=== PATIENT | female | born 1945 | race Two or more races ===

== ENCOUNTER 2023-09-10 12:23 | Inpatient (IN) | payer OTHER ==
[~2023-09-10] VITALS: Ht 165.1 cm; Wt 102.6 kg
[2023-09-10] MEDS ORDERED: methylPREDNISolone SOD SUCC 125 MG/2 ML VL IV ONE (13:00)
[2023-09-10] MEDS ORDERED: ALBUTEROL SULF 2.5 MG/0.5ML(0.5%) NEB SOLN NEB ONE (13:00)
[2023-09-10] MEDS ORDERED: IPRATROPIUM BROM 0.5 MG/2.5ML INH SOL NEB ONE (13:00)
[2023-09-10 13:25] VITALS: PULSE 127; RESP 30; O2SAT 87
[2023-09-10 13:50] LABS: Basophils # (auto) 0 10 ^3/uL (0-0.2); Basophils % (auto) 0.2 % (0.0-2.0); Eosinophils # (auto) 0 10 ^3/uL (0-0.8); Hematocrit 36.2 % (36.0-46.0); Hemoglobin 12.1 g/dL (12.2-16.2); Lymphocytes # (auto) 0.8 10 ^3/uL (0.4-5.4); Lymphocytes % (auto) 4.5 % (10.0-50.0); Mean Corpuscular Hemoglobin 30.8 pg (28.0-32.0); Mean Corpuscular Hgb Conc. 33.4 g/dL (32.0-36.0); Mean Corpuscular Volume 92.1 fL (80.0-100.0); Monocytes # (auto) 1.3 10 ^3/uL (0-1.3); Monocytes % (auto) 7.2 % (0.0-12.0); Neutrophils # (auto) 16.3 10 ^3/uL (1.6-8.6); Neutrophils % (auto) 88.1 % (37.0-80.0); Red Blood Cells 3.93 10^6/uL (4.0-5.20); Red Cell Distribution Width 13.8 % (11.8-14.3); White Blood Cell 18.5 10^3/uL (4.4-10.8)
[2023-09-10] MEDS ORDERED: cefTRIAXone 1GM/50ML D5W 50 ML IV ONE (14:00)
[2023-09-10 14:06] LABS: Lactic Acid w/Reflex 2.2 mmol/L (0.4-2.0)
[2023-09-10 14:08] LABS: Alanine Aminotransferase 11 U/L (7-40); Albumin 3.8 g/dL (3.2-4.8); Alkaline Phosphatase 85 U/L (46-116); Anion Gap 11 (5-15); Aspartate Aminotransferase 13 U/L (13-40); BUN/Creatinine Ratio 28.4 (10.0-20.0); Bilirubin, Total 1.1 mg/dL (0.2-1.0); Blood Urea Nitrogen 27 mg/dL (9-23); Calcium 9.3 mg/dL (8.5-10.1); Carbon Dioxide 26 mmol/L (20-30); Chloride 102 mmol/L (98-107); Glucose 148 mg/dL (74-106); Potassium 3.8 mmol/L (3.5-5.1); Sodium 139 mmol/L (136-145)
[2023-09-10 15:04] LABS: Magnesium 1.7 mg/dL (1.6-2.6)
[2023-09-10] MEDS ORDERED: IOHEXOL 350 MG/ML 100ML IJ ONE (15:15)
[2023-09-10] MEDS ORDERED: MORPHINE SULFATE INJ 2 MG/ml SYRG IV PRN ×2 (16:30→16:45)
[2023-09-10] MEDS ORDERED: SODIUM CHLORIDE 0.9% 1,000 ML IV ONE ×2 (16:30)
[2023-09-10] MEDS ORDERED: NITROGLYCERIN 0.4 MG SL TAB SL PRN (16:30)
[2023-09-10] MEDS ORDERED: ONDANSETRON HCL 4 MG/2 ML VIAL IV PRN (16:45)
[2023-09-10 17:06] VITALS: BP 113/68; PULSE 127; RESP 22; TEMP 99.9; O2SAT 90
[2023-09-10 17:09] LABS: Base Excess 0.1 mmol/L (-2.0-2.0)
[2023-09-10] MEDS: IPRATROPIUM BROM 0.5 MG/2.5ML INH SOL NEB PRN (18:11)
[2023-09-10] MEDS: BUDESONIDE (INHALATION) 0.5 MG/2 ML NEB NEB SCH (18:12)
[2023-09-10] MEDS: ALBUTEROL SULF 2.5 MG/0.5ML(0.5%) NEB SOLN NEB PRN (18:12)
[2023-09-10] MEDS: FAMOTIDINE (10MG/ML) 2ML VL IV SCH (19:00)
[2023-09-10 19:01] VITALS: PULSE 111; RESP 26; O2SAT 92
[2023-09-10] MEDS: PIPERACILLIN-TAZOB 3.375GM 100 ML IV SCH (19:06)
[2023-09-10] MEDS ORDERED: ACETAMINOPHEN 325 MG TAB PO PRN (19:45)
[2023-09-10] MEDS: SODIUM CHLORIDE 0.9% 1,000 ML IV SCH (21:24)
[2023-09-10 23:37] LABS: Urine Bacteria NONE SEEN /hpf (None Seen); Urine Blood Negative /uL (Negative); Urine Clarity HAZY (Clear); Urine Color Yellow (Yellow); Urine Mucus FEW (None Seen); Urine Protein, UAD 1+ (Negative); Urine Urobilinogen Normal (Negative); Urine WBC 5 /hpf (0 - 5); Urine pH 5.5 (5.0-8.0)
[2023-09-10 23:44] LABS: Urine Specific Gravity > 1.050 (1.001-1.035)
[2023-09-11] VITALS (11 sets, daily range): BP systolic 137–162; BP diastolic 89–100; PULSE 104–135; RESP 16–20; TEMP 97.4–98; O2SAT 90–98
[2023-09-11] MEDS: PIPERACILLIN-TAZOB 3.375GM 100 ML IV SCH ×3 (00:39→12:05)
[2023-09-11 06:05] LABS: Calcium 9.6 mg/dL (8.5-10.1); Chloride 102 mmol/L (98-107); Potassium 3.7 mmol/L (3.5-5.1); Sodium 137 mmol/L (136-145)
[2023-09-11] MEDS: SODIUM CHLORIDE 0.9% 1,000 ML IV SCH ×2 (06:05→19:25)
[2023-09-11 06:06] LABS: Anion Gap 10 (5-15); Carbon Dioxide 25 mmol/L (20-30)
[2023-09-11 06:08] LABS: Basophils # (auto) 0 10 ^3/uL (0-0.2); Basophils % (auto) 0.1 % (0.0-2.0); Eosinophils # (auto) 0 10 ^3/uL (0-0.8); Hematocrit 36.1 % (36.0-46.0); Lymphocytes # (auto) 0.6 10 ^3/uL (0.4-5.4); Lymphocytes % (auto) 3.5 % (10.0-50.0); Mean Corpuscular Hemoglobin 30.7 pg (28.0-32.0); Mean Corpuscular Hgb Conc. 33.2 g/dL (32.0-36.0); Mean Corpuscular Volume 92.4 fL (80.0-100.0); Monocytes # (auto) 0.9 10 ^3/uL (0-1.3); Monocytes % (auto) 5.3 % (0.0-12.0); Neutrophils # (auto) 15.5 10 ^3/uL (1.6-8.6); Neutrophils % (auto) 91.1 % (37.0-80.0); Red Blood Cells 3.91 10^6/uL (4.0-5.20)
[2023-09-11 06:11] LABS: Blood Urea Nitrogen 29 mg/dL (9-23); Glucose 184 mg/dL (74-106)
[2023-09-11 08:03] LABS: INR 1.06 (0.9-1.15); Partial Thromboplastin Time 29.5 SEC (24.5-34.5); Prothrombin Time 11.1 sec (9.3-11.8)
[2023-09-11 08:12] LABS: COVID19 ANTIGEN SOFIA FIA NEGATIVE (NEGATIVE); Rapid Influenza A Negative (Negative); Rapid Influenza B Negative (Negative)
[2023-09-11 08:21] LABS: Base Excess 0.4 mmol/L (-2.0-2.0)
[2023-09-11] MEDS: ENOXAPARIN SOD 40 MG/0.4 ML SYRINGE SC SCH ×2 (08:41→10:11)
[2023-09-11] MEDS: BUDESONIDE (INHALATION) 0.5 MG/2 ML NEB NEB SCH ×2 (12:28→21:56)
[2023-09-11] MEDS ORDERED: cefTRIAXone 1GM/50ML D5W 50 ML IV ONE (12:30)
[2023-09-11] MEDS ORDERED: VANCOMYCIN PER PHARMACY 0 MG IV SCH (12:30)
[2023-09-11] MEDS ORDERED: VANCOMYCIN 1GM/250ML 250 ML IV ONE (13:15)
[2023-09-11] MEDS: PROMETHAZINE W/CODEINE 5 ML ORAL SYRUP PO PRN (17:37)
[2023-09-11] MEDS ORDERED: HYDR25TA87 PO (17:44)
[2023-09-11] MEDS ORDERED: ALBUTEROL MEDNEB 2.5 mg/3ml NEB ONE ×2 (18:55→21:43)
[2023-09-11] MEDS: IPRATROPIUM BROM 0.5 MG/2.5ML INH SOL NEB PRN ×2 (19:23→21:56)
[2023-09-11] MEDS: ALBUTEROL SULF 2.5 MG/0.5ML(0.5%) NEB SOLN NEB PRN ×2 (19:23→21:56)
[2023-09-11] MEDS: ACETYLCYSTEINE 10 %(100MG/ML) SOL 4ML NEB SCH (21:56)
[2023-09-11] MEDS: APIXABAN 2.5 MG TAB PO SCH (22:28)
[2023-09-12] VITALS (16 sets, daily range): BP systolic 103–179; BP diastolic 65–104; PULSE 100–128; RESP 13–30; TEMP 96.5–97.9; O2SAT 87–98
[2023-09-12] MEDS: hydrALAZINE HCL 10 MG TAB PO PRN ×2 (05:05→22:39)
[2023-09-12 05:50] LABS: Basophils # (auto) 0 10 ^3/uL (0-0.2); Basophils % (auto) 0.1 % (0.0-2.0); Eosinophils # (auto) 0 10 ^3/uL (0-0.8); Hematocrit 35.3 % (36.0-46.0); Hemoglobin 11.6 g/dL (12.2-16.2); Lymphocytes # (auto) 0.9 10 ^3/uL (0.4-5.4); Mean Corpuscular Hemoglobin 30.6 pg (28.0-32.0); Mean Corpuscular Hgb Conc. 32.9 g/dL (32.0-36.0); Mean Corpuscular Volume 93.1 fL (80.0-100.0); Monocytes # (auto) 1.4 10 ^3/uL (0-1.3); Monocytes % (auto) 8.4 % (0.0-12.0); Neutrophils # (auto) 14.7 10 ^3/uL (1.6-8.6); Neutrophils % (auto) 86.5 % (37.0-80.0); Red Blood Cells 3.79 10^6/uL (4.0-5.20); Red Cell Distribution Width 13.7 % (11.8-14.3)
[2023-09-12 05:57] LABS: Anion Gap 9 (5-15); Carbon Dioxide 25 mmol/L (20-30); Chloride 103 mmol/L (98-107); Potassium 3.7 mmol/L (3.5-5.1); Sodium 137 mmol/L (136-145)
[2023-09-12 05:58] LABS: Calcium 9.4 mg/dL (8.7-10.4)
[2023-09-12] MEDS ORDERED: ALBUTEROL MEDNEB 2.5 mg/3ml NEB ONE ×2 (06:00→12:24)
[2023-09-12 06:03] LABS: BUN/Creatinine Ratio 31.6 (10.0-20.0); Blood Urea Nitrogen 24 mg/dL (9-23); Glucose 143 mg/dL (74-106)
[2023-09-12] MEDS: BUDESONIDE (INHALATION) 0.5 MG/2 ML NEB NEB SCH ×2 (07:04→22:12)
[2023-09-12] MEDS: ALBUTEROL SULF 2.5 MG/0.5ML(0.5%) NEB SOLN NEB PRN ×2 (07:04→14:51)
[2023-09-12] MEDS: ACETYLCYSTEINE 10 %(100MG/ML) SOL 4ML NEB SCH ×3 (07:05→22:12)
[2023-09-12 07:21] LABS: Base Excess -1.1 mmol/L (-2.0-2.0)
[2023-09-12] MEDS: SODIUM CHLORIDE 0.9% 1,000 ML IV SCH (08:45)
[2023-09-12] MEDS: cefTRIAXone 1GM/50ML D5W 50 ML IV SCH (09:54)
[2023-09-12] MEDS: VANCOMYCIN 1GM/250ML 250 ML IV SCH (09:54)
[2023-09-12] MEDS: FAMOTIDINE (10MG/ML) 2ML VL IV SCH (09:55)
[2023-09-12] MEDS: hydrALAZINE HCL 25 MG TAB PO SCH (09:56)
[2023-09-12] MEDS: APIXABAN 2.5 MG TAB PO SCH ×2 (09:56→20:59)
[2023-09-12] MEDS: AZITHROMYCIN 500MG/ 250ML 250 ML IV SCH (11:11)
[2023-09-12] MEDS: METOPROLOL TARTRATE 25 MG TAB PO SCH ×2 (11:44→20:58)
[2023-09-12] MEDS: PROMETHAZINE W/CODEINE 5 ML ORAL SYRUP PO PRN (14:00)
[2023-09-12 14:47] LABS: Base Excess -2.3 mmol/L (-2.0-2.0)
[2023-09-12] MEDS ORDERED: FUROSEMIDE 20 MG/2 ML VIAL IV ONE (15:45)
[2023-09-12] MEDS: THROAT LOZENGES(CEPASTAT) MT PRN ×2 (18:48→22:33)
[2023-09-12] MEDS: IPRATROPIUM BROM 0.5 MG/2.5ML INH SOL NEB PRN (22:12)
[2023-09-13] VITALS (25 sets, daily range): BP systolic 129–199; BP diastolic 80–113; PULSE 97–119; RESP 16–26; TEMP 97.5–98.3; O2SAT 89–98
[2023-09-13] MEDS: THROAT LOZENGES(CEPASTAT) MT PRN (01:47)
[2023-09-13] MEDS ORDERED: ALBUTEROL MEDNEB 2.5 mg/3ml NEB ONE ×2 (05:41→21:10)
[2023-09-13 05:47] LABS: Basophils # (auto) 0 10 ^3/uL (0-0.2); Basophils % (auto) 0.2 % (0.0-2.0); Eosinophils # (auto) 0.1 10 ^3/uL (0-0.8); Eosinophils % (auto) 0.6 % (0.0-7.0); Hematocrit 38.2 % (36.0-46.0); Hemoglobin 12.9 g/dL (12.2-16.2); Lymphocytes # (auto) 0.7 10 ^3/uL (0.4-5.4); Lymphocytes % (auto) 4.9 % (10.0-50.0); Mean Corpuscular Hemoglobin 31.1 pg (28.0-32.0); Mean Corpuscular Hgb Conc. 33.9 g/dL (32.0-36.0); Mean Corpuscular Volume 91.7 fL (80.0-100.0); Monocytes # (auto) 1.3 10 ^3/uL (0-1.3); Monocytes % (auto) 8.8 % (0.0-12.0); Neutrophils # (auto) 12.7 10 ^3/uL (1.6-8.6); Neutrophils % (auto) 85.5 % (37.0-80.0); Red Blood Cells 4.16 10^6/uL (4.0-5.20); Red Cell Distribution Width 13.5 % (11.8-14.3); White Blood Cell 14.8 10^3/uL (4.4-10.8)
[2023-09-13] MEDS: VANCOMYCIN 1GM/250ML 250 ML IV SCH (06:00)
[2023-09-13] MEDS: BUDESONIDE (INHALATION) 0.5 MG/2 ML NEB NEB SCH ×2 (06:23→21:54)
[2023-09-13] MEDS: ALBUTEROL SULF 2.5 MG/0.5ML(0.5%) NEB SOLN NEB PRN ×2 (06:23→21:54)
[2023-09-13] MEDS: ACETYLCYSTEINE 10 %(100MG/ML) SOL 4ML NEB SCH ×3 (06:24→21:54)
[2023-09-13 07:07] LABS: Chloride 100 mmol/L (98-107); Potassium 4.6 mmol/L (3.5-5.1); Sodium 135 mmol/L (136-145)
[2023-09-13 07:08] LABS: Anion Gap 5 (5-15); Calcium 9.4 mg/dL (8.7-10.4); Carbon Dioxide 30 mmol/L (20-30)
[2023-09-13 07:13] LABS: BUN/Creatinine Ratio 39.1 (10.0-20.0); Blood Urea Nitrogen 25 mg/dL (9-23); Glucose 125 mg/dL (74-106)
[2023-09-13] MEDS: cefTRIAXone 1GM/50ML D5W 50 ML IV SCH (08:49)
[2023-09-13] MEDS: FAMOTIDINE (10MG/ML) 2ML VL IV SCH (11:22)
[2023-09-13] MEDS: AZITHROMYCIN 500MG/ 250ML 250 ML IV SCH (11:23)
[2023-09-13] MEDS: hydrALAZINE HCL 25 MG TAB PO SCH (11:24)
[2023-09-13] MEDS: APIXABAN 2.5 MG TAB PO SCH ×2 (11:24→21:34)
[2023-09-13] MEDS: METOPROLOL TARTRATE 25 MG TAB PO SCH ×2 (11:25→21:35)
[2023-09-13] MEDS ORDERED: PHENYLEPHRINE HCL 1 % NASAL SPRAY 15ML PRN (13:45)
[2023-09-13 14:10] LABS: Body Fluid Polymorphonuclear 31 % (0-25); Body Fluid Red Blood Cells 545 CUMM (0-2000); Body Fluid White Blood Cells 630 CUMM (0-200)
[2023-09-13] MEDS: IPRATROPIUM BROM 0.5 MG/2.5ML INH SOL NEB PRN ×2 (14:46→21:54)
[2023-09-13] MEDS: PROMETHAZINE W/CODEINE 5 ML ORAL SYRUP PO PRN (23:14)
[2023-09-13] MEDS: hydrALAZINE HCL 10 MG TAB PO PRN (23:14)
[2023-09-14] VITALS (106 sets, daily range): BP systolic 53–197; BP diastolic 10–163; PULSE 89–156; RESP 15–46; TEMP 96.8–98.2; O2SAT 80–100
[2023-09-14] MEDS: VANCOMYCIN 1GM/250ML 250 ML IV SCH ×2 (02:12→19:56)
[2023-09-14] MEDS ORDERED: ALBUTEROL MEDNEB 2.5 mg/3ml NEB ONE ×2 (04:52→07:19)
[2023-09-14] MEDS: IPRATROPIUM BROM 0.5 MG/2.5ML INH SOL NEB PRN ×4 (05:21→17:43)
[2023-09-14] MEDS: ALBUTEROL SULF 2.5 MG/0.5ML(0.5%) NEB SOLN NEB PRN ×4 (05:21→17:44)
[2023-09-14 05:57] LABS: Basophils # (auto) 0 10 ^3/uL (0-0.2); Basophils % (auto) 0.1 % (0.0-2.0); Eosinophils # (auto) 0.1 10 ^3/uL (0-0.8); Eosinophils % (auto) 0.7 % (0.0-7.0); Hematocrit 37.8 % (36.0-46.0); Hemoglobin 12.4 g/dL (12.2-16.2); Lymphocytes # (auto) 1.2 10 ^3/uL (0.4-5.4); Lymphocytes % (auto) 9.9 % (10.0-50.0); Mean Corpuscular Hemoglobin 30.4 pg (28.0-32.0); Mean Corpuscular Hgb Conc. 32.8 g/dL (32.0-36.0); Mean Corpuscular Volume 92.8 fL (80.0-100.0); Monocytes # (auto) 1.4 10 ^3/uL (0-1.3); Monocytes % (auto) 11.6 % (0.0-12.0); Neutrophils # (auto) 9.6 10 ^3/uL (1.6-8.6); Neutrophils % (auto) 77.7 % (37.0-80.0); Red Blood Cells 4.08 10^6/uL (4.0-5.20); Red Cell Distribution Width 13.6 % (11.8-14.3); White Blood Cell 12.4 10^3/uL (4.4-10.8)
[2023-09-14] MEDS: ACETYLCYSTEINE 10 %(100MG/ML) SOL 4ML NEB SCH ×3 (05:57→17:44)
[2023-09-14] MEDS: BUDESONIDE (INHALATION) 0.5 MG/2 ML NEB NEB SCH ×2 (05:57→17:44)
[2023-09-14 06:05] LABS: Base Excess -4.8 mmol/L (-2.0-2.0)
[2023-09-14 07:21] LABS: Base Excess -2.9 mmol/L (-2.0-2.0)
[2023-09-14] MEDS ORDERED: SUCCINYLCHOLINE CHLORIDE 20 MG/ML 10ML VIAL IV ONE (08:48)
[2023-09-14] MEDS ORDERED: ETOMIDATE (2MG/ML) 20ML VIAL IV ONE (08:48)
[2023-09-14] MEDS ORDERED: PROPOFOL 100 ML IV ONE (08:48)
[2023-09-14] MEDS ORDERED: MIDAZOLAM DRIP 50 mg/50mL 50 ML IV ONE (08:56)
[2023-09-14] MEDS: MIDAZOLAM DRIP 50 mg/50mL 50 ML IV SCH ×3 (09:13→17:52)
[2023-09-14] MEDS: NOREPINEPHRINE 8 MG/250ML KIT 250 ML IV SCH (09:15)
[2023-09-14] MEDS ORDERED: NOREPINEPHRINE 8 MG/250ML KIT 250 ML IV ONE (09:17)
[2023-09-14] MEDS: fentaNYL Drip 2500mCg/250mlNS 250 ML IV SCH (09:30)
[2023-09-14] MEDS: PROPOFOL 100 ML IV SCH ×2 (09:30→21:13)
[2023-09-14] MEDS ORDERED: AMIODARONE 450mg/250ml AE 250 ML IV ONE (09:36)
[2023-09-14] MEDS ORDERED: AMIODARONE 450mg/250ml AE 250 ML IV SCH (09:45)
[2023-09-14] MEDS: APIXABAN 2.5 MG TAB PO SCH (10:00)
[2023-09-14] MEDS: hydrALAZINE HCL 25 MG TAB PO SCH (10:00)
[2023-09-14] MEDS: METOPROLOL TARTRATE 25 MG TAB PO SCH (10:00)
[2023-09-14 11:47] LABS: Base Excess 1.8 mmol/L (-2.0-2.0)
[2023-09-14] MEDS: FAMOTIDINE (10MG/ML) 2ML VL IV SCH (11:47)
[2023-09-14] MEDS: cefTRIAXone 1GM/50ML D5W 50 ML IV SCH (11:47)
[2023-09-14 12:07] LABS: Eosinophils # (auto) 0 10 ^3/uL (0-0.8); Monocytes # (auto) 1.6 10 ^3/uL (0-1.3); Monocytes % (auto) 7.3 % (0.0-12.0); Red Blood Cells 3.88 10^6/uL (4.0-5.20)
[2023-09-14 12:09] LABS: Basophils # (auto) 0.1 10 ^3/uL (0-0.2); Basophils % (auto) 0.3 % (0.0-2.0); Eosinophils % (auto) 0.1 % (0.0-7.0); Hematocrit 35.2 % (36.0-46.0); Hemoglobin 11.8 g/dL (12.2-16.2); Lymphocytes % (auto) 4.5 % (10.0-50.0); Mean Corpuscular Hemoglobin 30.4 pg (28.0-32.0); Mean Corpuscular Hgb Conc. 33.6 g/dL (32.0-36.0); Mean Corpuscular Volume 90.7 fL (80.0-100.0); Neutrophils % (auto) 87.8 % (37.0-80.0); Nucleated Red Blood Cells % 0.2 %; Red Cell Distribution Width 13.7 % (11.8-14.3); White Blood Cell 21.6 10^3/uL (4.4-10.8)
[2023-09-14 12:27] LABS: INR 1.04 (0.9-1.15); Partial Thromboplastin Time 21.7 SEC (24.5-34.5); Prothrombin Time 10.9 sec (9.3-11.8)
[2023-09-14 12:44] LABS: Alanine Aminotransferase 19 U/L (7-40); Albumin 3.6 g/dL (3.2-4.8); Alkaline Phosphatase 87 U/L (46-116); Anion Gap 7 (5-15); Aspartate Aminotransferase 19 U/L (13-40); BUN/Creatinine Ratio 24.7 (10.0-20.0); Bilirubin, Total 0.7 mg/dL (0.2-1.0); Blood Urea Nitrogen 19 mg/dL (9-23); Calcium 9.3 mg/dL (8.7-10.4); Carbon Dioxide 30 mmol/L (20-30); Chloride 99 mmol/L (98-107); Glucose 190 mg/dL (74-106); Sodium 136 mmol/L (136-145)
[2023-09-14] MEDS: AZITHROMYCIN 500MG/ 250ML 250 ML IV SCH (12:47)
[2023-09-14] MEDS: AMIODARONE 450mg/250ml AE 250 ML IV SCH ×2 (15:47→17:50)
[2023-09-14] MEDS ORDERED: LIDOCAINE 1% (LOCAL ANESTH.) PF 5ml SDV ID ONE (19:00)
[2023-09-14] MEDS: SODIUM CHLOR 0.9% PF (SALINE LOCK) 10ML VIAL/SYR IV SCH (22:04)
[2023-09-14] MEDS: APIXABAN 2.5 MG TAB NG SCH (22:04)
[2023-09-15] VITALS (107 sets, daily range): BP systolic 66–137; BP diastolic 29–85; PULSE 97–126; RESP 14–30; TEMP 97.3–99.3; O2SAT 93–100
[2023-09-15] MEDS: NOREPINEPHRINE 8 MG/250ML KIT 250 ML IV SCH ×3 (00:41→23:42)
[2023-09-15] MEDS: MIDAZOLAM DRIP 50 mg/50mL 50 ML IV SCH ×4 (01:09→23:41)
[2023-09-15] MEDS: PROPOFOL 100 ML IV SCH ×3 (01:12→21:02)
[2023-09-15] MEDS ORDERED: ALBUTEROL MEDNEB 2.5 mg/3ml NEB ONE ×2 (07:15→14:27)
[2023-09-15] MEDS: BUDESONIDE (INHALATION) 0.5 MG/2 ML NEB NEB SCH ×2 (07:19→22:16)
[2023-09-15] MEDS: ALBUTEROL SULF 2.5 MG/0.5ML(0.5%) NEB SOLN NEB PRN ×2 (07:19→14:29)
[2023-09-15] MEDS: IPRATROPIUM BROM 0.5 MG/2.5ML INH SOL NEB PRN ×3 (07:19→22:16)
[2023-09-15] MEDS: ACETYLCYSTEINE 10 %(100MG/ML) SOL 4ML NEB SCH ×3 (07:20→22:16)
[2023-09-15 07:27] LABS: Chloride 97 mmol/L (98-107); Sodium 134 mmol/L (136-145)
[2023-09-15 07:28] LABS: Anion Gap 12 (5-15); Calcium 9.2 mg/dL (8.7-10.4); Carbon Dioxide 25 mmol/L (20-30)
[2023-09-15 07:32] LABS: Basophils # (auto) 0 10 ^3/uL (0-0.2); Basophils % (auto) 0.2 % (0.0-2.0); Eosinophils # (auto) 0.3 10 ^3/uL (0-0.8)
[2023-09-15 07:33] LABS: BUN/Creatinine Ratio 24.5 (10.0-20.0); Blood Urea Nitrogen 26 mg/dL (9-23); Glucose 178 mg/dL (74-106)
[2023-09-15 07:34] LABS: Eosinophils % (auto) 1.4 % (0.0-7.0); Hematocrit 36.8 % (36.0-46.0); Hemoglobin 12.4 g/dL (12.2-16.2); Lymphocytes # (auto) 2.1 10 ^3/uL (0.4-5.4); Lymphocytes % (auto) 9.7 % (10.0-50.0); Mean Corpuscular Hemoglobin 30.6 pg (28.0-32.0); Mean Corpuscular Hgb Conc. 33.6 g/dL (32.0-36.0); Mean Corpuscular Volume 90.9 fL (80.0-100.0); Monocytes # (auto) 2.2 10 ^3/uL (0-1.3); Neutrophils # (auto) 17.3 10 ^3/uL (1.6-8.6); Neutrophils % (auto) 78.7 % (37.0-80.0); Red Blood Cells 4.05 10^6/uL (4.0-5.20); Red Cell Distribution Width 14.1 % (11.8-14.3)
[2023-09-15 08:05] LABS: Base Excess 0.5 mmol/L (-2.0-2.0)
[2023-09-15] MEDS: cefTRIAXone 1GM/50ML D5W 50 ML IV SCH (08:52)
[2023-09-15] MEDS: fentaNYL Drip 2500mCg/250mlNS 250 ML IV SCH (09:30)
[2023-09-15] MEDS: AMIODARONE 450mg/250ml AE 250 ML IV SCH ×2 (10:00→23:42)
[2023-09-15] MEDS: FAMOTIDINE (10MG/ML) 2ML VL IV SCH (10:26)
[2023-09-15] MEDS: APIXABAN 2.5 MG TAB NG SCH ×2 (10:26→21:53)
[2023-09-15] MEDS: AZITHROMYCIN 500MG/ 250ML 250 ML IV SCH (10:27)
[2023-09-15] MEDS: SODIUM CHLOR 0.9% PF (SALINE LOCK) 10ML VIAL/SYR IV SCH ×2 (10:27→22:44)
[2023-09-15] MEDS: VANCOMYCIN 1GM/250ML 250 ML IV SCH (13:53)
[2023-09-15 14:18] LABS: Protein, Body Fluid 2.8 g/dL (.)
[2023-09-15 23:17] LABS: Mean Corpuscular Hemoglobin 30.3 pg (28.0-32.0); Mean Corpuscular Hgb Conc. 33.4 g/dL (32.0-36.0); Mean Corpuscular Volume 90.5 fL (80.0-100.0); Red Blood Cells 3.97 10^6/uL (4.0-5.20); White Blood Cell 23.7 10^3/uL (4.4-10.8)
[2023-09-15 23:19] LABS: Band Neutrophils % (manual) 0; Basophils % (manual) 0 (0.0-2.0); Blast Cells 0; Metamyelocytes % 0; Myelocytes % 0; Promyelocytes % 0; Reactive Lymphocytes 0
[2023-09-15 23:39] LABS: Eosinophils % (manual) 1 (0-7); Lymphocytes % (manual) 18 (10.0-50.0); Monocytes % (manual) 13 (0-12); Platelet Estimate Increased
[2023-09-16] VITALS (108 sets, daily range): BP systolic 80–137; BP diastolic 47–94; PULSE 94–142; RESP 16–40; TEMP 98–99.3; O2SAT 73–100
[2023-09-16] MEDS: METOPROLOL TARTRATE 1MG/1ML-5ML VIAL IV PRN (03:16)
[2023-09-16 04:52] LABS: Hemoglobin 12.1 g/dL (12.2-16.2); Red Blood Cells 3.99 10^6/uL (4.0-5.20); White Blood Cell 22.8 10^3/uL (4.4-10.8)
[2023-09-16 04:54] LABS: Chloride 98 mmol/L (98-107); Hematocrit 36.2 % (36.0-46.0); Mean Corpuscular Hemoglobin 30.4 pg (28.0-32.0); Mean Corpuscular Hgb Conc. 33.4 g/dL (32.0-36.0); Mean Corpuscular Volume 90.8 fL (80.0-100.0); Sodium 132 mmol/L (136-145)
[2023-09-16 04:55] LABS: Anion Gap 6 (5-15); Carbon Dioxide 28 mmol/L (20-30)
[2023-09-16 04:56] LABS: Calcium 9.3 mg/dL (8.5-10.1)
[2023-09-16 05:00] LABS: BUN/Creatinine Ratio 19.6 (10.0-20.0); Blood Urea Nitrogen 19 mg/dL (9-23); Glucose 172 mg/dL (74-106)
[2023-09-16 05:06] LABS: INR 1.04 (0.9-1.15); Partial Thromboplastin Time 28.7 SEC (24.5-34.5); Prothrombin Time 10.9 sec (9.3-11.8)
[2023-09-16 05:25] LABS: Band Neutrophils % (manual) 0; Basophils % (manual) 0 (0.0-2.0); Blast Cells 0; Eosinophils % (manual) 0 (0-7); Metamyelocytes % 0; Promyelocytes % 0; Reactive Lymphocytes 0
[2023-09-16] MEDS ORDERED: ALBUTEROL MEDNEB 2.5 mg/3ml NEB ONE ×4 (06:14→22:27)
[2023-09-16] MEDS: MIDAZOLAM DRIP 50 mg/50mL 50 ML IV SCH ×4 (06:42→22:07)
[2023-09-16] MEDS: ACETYLCYSTEINE 10 %(100MG/ML) SOL 4ML NEB SCH ×3 (07:01→22:28)
[2023-09-16] MEDS: ALBUTEROL SULF 2.5 MG/0.5ML(0.5%) NEB SOLN NEB PRN ×3 (07:01→22:27)
[2023-09-16] MEDS: BUDESONIDE (INHALATION) 0.5 MG/2 ML NEB NEB SCH ×2 (07:02→22:28)
[2023-09-16] MEDS: IPRATROPIUM BROM 0.5 MG/2.5ML INH SOL NEB PRN ×2 (07:03→22:27)
[2023-09-16] MEDS: VANCOMYCIN 1GM/250ML 250 ML IV SCH (07:30)
[2023-09-16 07:46] LABS: Lymphocytes % (manual) 11 (10.0-50.0); Monocytes % (manual) 10 (0-12); Myelocytes % 3; Platelet Estimate Increased
[2023-09-16] MEDS: NOREPINEPHRINE 8 MG/250ML KIT 250 ML IV SCH ×2 (08:04→23:26)
[2023-09-16] MEDS: PROPOFOL 100 ML IV SCH (08:09)
[2023-09-16 09:13] LABS: Base Excess 3.5 mmol/L (-2.0-2.0)
[2023-09-16] MEDS: cefTRIAXone 1GM/50ML D5W 50 ML IV SCH (09:27)
[2023-09-16] MEDS ORDERED: GLYCOPYRROLATE 0.2 MG/ML 1ML VIAL ONE (09:27)
[2023-09-16] MEDS ORDERED: EPINEPHrine HCL 1 MG/1 ML AMP ONE (09:27)
[2023-09-16] MEDS ORDERED: LIDOCAINE 2% JELLY 11ml (GLYDO) ONE (09:27)
[2023-09-16] MEDS: FAMOTIDINE (10MG/ML) 2ML VL IV SCH (09:28)
[2023-09-16] MEDS: fentaNYL Drip 2500mCg/250mlNS 250 ML IV SCH (09:28)
[2023-09-16] MEDS: APIXABAN 2.5 MG TAB NG SCH ×2 (09:29→21:04)
[2023-09-16] MEDS: SODIUM CHLOR 0.9% PF (SALINE LOCK) 10ML VIAL/SYR IV SCH ×2 (09:29→22:07)
[2023-09-16] MEDS: AZITHROMYCIN 500MG/ 250ML 250 ML IV SCH (10:14)
[2023-09-16] MEDS: AMIODARONE 450mg/250ml AE 250 ML IV SCH (14:13)
[2023-09-17] VITALS (104 sets, daily range): BP systolic 68–143; BP diastolic 42–89; PULSE 96–128; RESP 16–45; TEMP 97.5–99.5; O2SAT 90–100
[2023-09-17] MEDS: PROPOFOL 100 ML IV SCH ×2 (00:06→16:38)
[2023-09-17] MEDS: VANCOMYCIN 1GM/250ML 250 ML IV SCH ×2 (02:16→20:35)
[2023-09-17 05:02] LABS: Hematocrit 35.6 % (36.0-46.0)
[2023-09-17 05:05] LABS: Mean Corpuscular Hemoglobin 30.7 pg (28.0-32.0); Mean Corpuscular Hgb Conc. 33.5 g/dL (32.0-36.0); Mean Corpuscular Volume 91.6 fL (80.0-100.0); Red Blood Cells 3.89 10^6/uL (4.0-5.20); Red Cell Distribution Width 14.3 % (11.8-14.3); White Blood Cell 22.7 10^3/uL (4.4-10.8)
[2023-09-17] MEDS: AMIODARONE 450mg/250ml AE 250 ML IV SCH ×2 (05:15→19:57)
[2023-09-17 05:18] LABS: Band Neutrophils % (manual) 0; Basophils % (manual) 0 (0.0-2.0); Blast Cells 0; Eosinophils % (manual) 0 (0-7); Metamyelocytes % 0; Promyelocytes % 0; Reactive Lymphocytes 0
[2023-09-17 05:32] LABS: Calcium 9.4 mg/dL (8.7-10.4); Chloride 97 mmol/L (98-107); Potassium 3.8 mmol/L (3.5-5.1); Sodium 134 mmol/L (136-145)
[2023-09-17 05:33] LABS: Anion Gap 8 (5-15); Carbon Dioxide 29 mmol/L (20-30)
[2023-09-17 05:39] LABS: BUN/Creatinine Ratio 19.3 (10.0-20.0); Blood Urea Nitrogen 17 mg/dL (9-23); Glucose 190 mg/dL (74-106)
[2023-09-17] MEDS: MIDAZOLAM DRIP 50 mg/50mL 50 ML IV SCH ×2 (05:43→13:13)
[2023-09-17] MEDS: BUDESONIDE (INHALATION) 0.5 MG/2 ML NEB NEB SCH ×2 (06:41→23:01)
[2023-09-17] MEDS: IPRATROPIUM BROM 0.5 MG/2.5ML INH SOL NEB PRN ×3 (06:41→23:00)
[2023-09-17] MEDS: ACETYLCYSTEINE 10 %(100MG/ML) SOL 4ML NEB SCH ×3 (06:41→23:00)
[2023-09-17 07:24] LABS: Base Excess 3.2 mmol/L (-2.0-2.0)
[2023-09-17 07:55] LABS: Lymphocytes % (manual) 7 (10.0-50.0); Monocytes % (manual) 6 (0-12); Myelocytes % 2; Platelet Estimate Increased
[2023-09-17] MEDS: fentaNYL Drip 2500mCg/250mlNS 250 ML IV SCH (09:03)
[2023-09-17] MEDS: METOPROLOL TARTRATE 1MG/1ML-5ML VIAL IV PRN (09:04)
[2023-09-17] MEDS: SODIUM CHLOR 0.9% PF (SALINE LOCK) 10ML VIAL/SYR IV SCH ×2 (09:24→21:12)
[2023-09-17] MEDS: FAMOTIDINE (10MG/ML) 2ML VL IV SCH (09:24)
[2023-09-17] MEDS: cefTRIAXone 1GM/50ML D5W 50 ML IV SCH (09:24)
[2023-09-17] MEDS: NOREPINEPHRINE 8 MG/250ML KIT 250 ML IV SCH ×2 (09:50→19:58)
[2023-09-17] MEDS: AZITHROMYCIN 500MG/ 250ML 250 ML IV SCH (13:09)
[2023-09-17] MEDS: APIXABAN 2.5 MG TAB NG SCH ×2 (13:09→21:12)
[2023-09-17] MEDS: Jevity 1.2 Cal/Fiber 1 Liter GT SCH (14:43)
[2023-09-17] MEDS ORDERED: ALBUTEROL MEDNEB 2.5 mg/3ml NEB ONE (22:00)
[2023-09-17] MEDS: ALBUTEROL SULF 2.5 MG/0.5ML(0.5%) NEB SOLN NEB PRN (23:00)
[2023-09-18] VITALS (107 sets, daily range): BP systolic 79–168; BP diastolic 19–101; PULSE 92–123; RESP 14–22; TEMP 98.2–99.7; O2SAT 89–100
[2023-09-18] MEDS: MIDAZOLAM DRIP 50 mg/50mL 50 ML IV SCH (00:09)
[2023-09-18 04:11] LABS: Eosinophils # (auto) 0.8 10 ^3/uL (0-0.8); Eosinophils % (auto) 4.9 % (0.0-7.0); Hemoglobin 11.6 g/dL (12.2-16.2); Monocytes # (auto) 1.7 10 ^3/uL (0-1.3); Nucleated Red Blood Cells % 0.1 %
[2023-09-18 04:13] LABS: Basophils # (auto) 0.1 10 ^3/uL (0-0.2); Basophils % (auto) 0.6 % (0.0-2.0); Hematocrit 34.8 % (36.0-46.0); Lymphocytes # (auto) 1.5 10 ^3/uL (0.4-5.4); Lymphocytes % (auto) 9.7 % (10.0-50.0); Mean Corpuscular Hemoglobin 30.6 pg (28.0-32.0); Mean Corpuscular Hgb Conc. 33.3 g/dL (32.0-36.0); Mean Corpuscular Volume 91.9 fL (80.0-100.0); Neutrophils # (auto) 11.5 10 ^3/uL (1.6-8.6); Neutrophils % (auto) 73.8 % (37.0-80.0); Red Blood Cells 3.78 10^6/uL (4.0-5.20); Red Cell Distribution Width 13.9 % (11.8-14.3); White Blood Cell 15.6 10^3/uL (4.4-10.8)
[2023-09-18 04:17] LABS: Anion Gap 6 (5-15); Carbon Dioxide 31 mmol/L (20-30); Chloride 98 mmol/L (98-107); Potassium 4.1 mmol/L (3.5-5.1); Sodium 135 mmol/L (136-145)
[2023-09-18 04:18] LABS: Calcium 9.4 mg/dL (8.5-10.1)
[2023-09-18 04:23] LABS: BUN/Creatinine Ratio 18.6 (10.0-20.0); Blood Urea Nitrogen 16 mg/dL (9-23); Glucose 141 mg/dL (74-106)
[2023-09-18] MEDS: NOREPINEPHRINE 8 MG/250ML KIT 250 ML IV SCH ×2 (05:49→19:41)
[2023-09-18] MEDS: PROPOFOL 100 ML IV SCH ×2 (06:27→13:22)
[2023-09-18] MEDS: ACETYLCYSTEINE 10 %(100MG/ML) SOL 4ML NEB SCH ×3 (06:55→21:56)
[2023-09-18] MEDS: BUDESONIDE (INHALATION) 0.5 MG/2 ML NEB NEB SCH ×2 (06:55→21:55)
[2023-09-18] MEDS: IPRATROPIUM BROM 0.5 MG/2.5ML INH SOL NEB PRN ×3 (06:55→21:55)
[2023-09-18 07:36] LABS: Base Excess 4.7 mmol/L (-2.0-2.0)
[2023-09-18] MEDS: cefTRIAXone 1GM/50ML D5W 50 ML IV SCH (09:06)
[2023-09-18] MEDS: fentaNYL Drip 2500mCg/250mlNS 250 ML IV SCH (09:30)
[2023-09-18] MEDS: APIXABAN 2.5 MG TAB NG SCH ×2 (09:44→21:57)
[2023-09-18] MEDS: AZITHROMYCIN 500MG/ 250ML 250 ML IV SCH (09:44)
[2023-09-18] MEDS: FAMOTIDINE (10MG/ML) 2ML VL IV SCH (09:44)
[2023-09-18] MEDS: SODIUM CHLOR 0.9% PF (SALINE LOCK) 10ML VIAL/SYR IV SCH ×2 (09:45→21:57)
[2023-09-18] MEDS: AMIODARONE 450mg/250ml AE 250 ML IV SCH (10:52)
[2023-09-18] MEDS: Jevity 1.2 Cal/Fiber 1 Liter GT SCH (16:00)
[2023-09-18] MEDS ORDERED: ALBUTEROL MEDNEB 2.5 mg/3ml NEB ONE (21:53)
[2023-09-18] MEDS: ALBUTEROL SULF 2.5 MG/0.5ML(0.5%) NEB SOLN NEB PRN (21:56)
[2023-09-19] VITALS (106 sets, daily range): BP systolic 83–150; BP diastolic 53–99; PULSE 92–113; RESP 13–26; TEMP 98.4–99.3; O2SAT 78–100
[2023-09-19] MEDS: AMIODARONE 450mg/250ml AE 250 ML IV SCH ×2 (01:24→12:43)
[2023-09-19] MEDS: PROPOFOL 100 ML IV SCH (01:24)
[2023-09-19 04:15] LABS: Basophils # (auto) 0.1 10 ^3/uL (0-0.2); Basophils % (auto) 0.4 % (0.0-2.0); Eosinophils # (auto) 0.6 10 ^3/uL (0-0.8); Eosinophils % (auto) 3.8 % (0.0-7.0); Hematocrit 33.8 % (36.0-46.0); Hemoglobin 11.2 g/dL (12.2-16.2); Lymphocytes # (auto) 1.3 10 ^3/uL (0.4-5.4); Lymphocytes % (auto) 7.7 % (10.0-50.0); Mean Corpuscular Hemoglobin 30.4 pg (28.0-32.0); Mean Corpuscular Hgb Conc. 33.2 g/dL (32.0-36.0); Mean Corpuscular Volume 91.7 fL (80.0-100.0); Monocytes # (auto) 1.6 10 ^3/uL (0-1.3); Monocytes % (auto) 9.7 % (0.0-12.0); Neutrophils % (auto) 78.4 % (37.0-80.0); Red Blood Cells 3.69 10^6/uL (4.0-5.20); Red Cell Distribution Width 14.4 % (11.8-14.3); White Blood Cell 16.5 10^3/uL (4.4-10.8)
[2023-09-19 04:30] LABS: Chloride 98 mmol/L (98-107); Potassium 4.6 mmol/L (3.5-5.1); Sodium 133 mmol/L (136-145)
[2023-09-19 04:31] LABS: Anion Gap 5 (5-15); Calcium 9.3 mg/dL (8.5-10.1); Carbon Dioxide 30 mmol/L (20-30)
[2023-09-19 04:36] LABS: BUN/Creatinine Ratio 20.2 (10.0-20.0); Blood Urea Nitrogen 17 mg/dL (9-23); Glucose 133 mg/dL (74-106)
[2023-09-19] MEDS: IPRATROPIUM BROM 0.5 MG/2.5ML INH SOL NEB PRN ×3 (06:42→18:37)
[2023-09-19] MEDS: ALBUTEROL SULF 2.5 MG/0.5ML(0.5%) NEB SOLN NEB PRN ×2 (06:42→18:37)
[2023-09-19] MEDS: BUDESONIDE (INHALATION) 0.5 MG/2 ML NEB NEB SCH ×2 (06:43→18:37)
[2023-09-19] MEDS: ACETYLCYSTEINE 10 %(100MG/ML) SOL 4ML NEB SCH ×3 (06:43→18:38)
[2023-09-19] MEDS: Jevity 1.2 Cal/Fiber 1 Liter GT SCH (07:20)
[2023-09-19] MEDS: MIDAZOLAM DRIP 50 mg/50mL 50 ML IV SCH (09:30)
[2023-09-19] MEDS: APIXABAN 2.5 MG TAB NG SCH ×2 (10:32→22:18)
[2023-09-19] MEDS: FAMOTIDINE (10MG/ML) 2ML VL IV SCH (10:32)
[2023-09-19] MEDS: SODIUM CHLOR 0.9% PF (SALINE LOCK) 10ML VIAL/SYR IV SCH ×2 (10:33→22:20)
[2023-09-19] MEDS ORDERED: ALBUTEROL MEDNEB 2.5 mg/3ml NEB ONE ×2 (11:02→14:57)
[2023-09-19] MEDS: FUROSEMIDE 20 MG/2 ML VIAL IV SCH ×2 (12:36→19:04)
[2023-09-19] MEDS: NOREPINEPHRINE 8 MG/250ML KIT 250 ML IV SCH (12:43)
[2023-09-19] MEDS ORDERED: IPRATROPIUM BROM 0.5 MG/2.5ML INH SOL ONE (14:57)
[2023-09-19] MEDS: MORPHINE SULFATE INJ 2 MG/ml SYRG IV PRN (22:19)
[2023-09-20] VITALS (66 sets, daily range): BP systolic 91–148; BP diastolic 44–82; PULSE 93–109; RESP 14–22; TEMP 97.3–98.8; O2SAT 92–100
[2023-09-20 04:09] LABS: Basophils # (auto) 0.1 10 ^3/uL (0-0.2); Basophils % (auto) 0.4 % (0.0-2.0); Eosinophils # (auto) 0.3 10 ^3/uL (0-0.8); Eosinophils % (auto) 1.8 % (0.0-7.0); Hematocrit 34.7 % (36.0-46.0); Hemoglobin 11.3 g/dL (12.2-16.2); Lymphocytes # (auto) 1.4 10 ^3/uL (0.4-5.4); Lymphocytes % (auto) 8.1 % (10.0-50.0); Mean Corpuscular Hemoglobin 29.8 pg (28.0-32.0); Mean Corpuscular Hgb Conc. 32.7 g/dL (32.0-36.0); Mean Corpuscular Volume 91.1 fL (80.0-100.0); Monocytes # (auto) 1.7 10 ^3/uL (0-1.3); Neutrophils # (auto) 13.2 10 ^3/uL (1.6-8.6); Neutrophils % (auto) 79.7 % (37.0-80.0); Red Blood Cells 3.81 10^6/uL (4.0-5.20); Red Cell Distribution Width 14.1 % (11.8-14.3); White Blood Cell 16.6 10^3/uL (4.4-10.8)
[2023-09-20 04:25] LABS: Calcium 9.5 mg/dL (8.7-10.4); Chloride 96 mmol/L (98-107); Potassium 4.9 mmol/L (3.5-5.1); Sodium 133 mmol/L (136-145)
[2023-09-20 04:26] LABS: Anion Gap 5 (5-15); Carbon Dioxide 32 mmol/L (20-30)
[2023-09-20 04:31] LABS: Blood Urea Nitrogen 24 mg/dL (9-23); Glucose 110 mg/dL (74-106)
[2023-09-20] MEDS: AMIODARONE 450mg/250ml AE 250 ML IV SCH (06:18)
[2023-09-20] MEDS: FUROSEMIDE 20 MG/2 ML VIAL IV SCH ×2 (06:18→17:32)
[2023-09-20] MEDS: ACETYLCYSTEINE 10 %(100MG/ML) SOL 4ML NEB SCH ×3 (06:49→18:44)
[2023-09-20] MEDS: ALBUTEROL SULF 2.5 MG/0.5ML(0.5%) NEB SOLN NEB PRN ×3 (06:49→18:43)
[2023-09-20] MEDS: IPRATROPIUM BROM 0.5 MG/2.5ML INH SOL NEB PRN ×3 (06:49→18:43)
[2023-09-20] MEDS: BUDESONIDE (INHALATION) 0.5 MG/2 ML NEB NEB SCH ×2 (06:50→18:43)
[2023-09-20] MEDS: MIDAZOLAM DRIP 50 mg/50mL 50 ML IV SCH (09:30)
[2023-09-20 09:40] LABS: Base Excess 6.2 mmol/L (-2.0-2.0)
[2023-09-20] MEDS: APIXABAN 2.5 MG TAB NG SCH ×2 (10:00→21:46)
[2023-09-20] MEDS: FAMOTIDINE (10MG/ML) 2ML VL IV SCH (10:00)
[2023-09-20] MEDS: SODIUM CHLOR 0.9% PF (SALINE LOCK) 10ML VIAL/SYR IV SCH ×2 (10:01→21:47)
[2023-09-20] MEDS: Jevity 1.2 Cal/Fiber 1 Liter GT SCH (17:32)
[2023-09-20] MEDS: AMIODARONE HCL 200 MG TAB PO SCH (21:46)
[2023-09-21] VITALS (44 sets, daily range): BP systolic 95–160; BP diastolic 59–119; PULSE 103–118; RESP 18–37; TEMP 98.1–98.8; O2SAT 85–100
[2023-09-21 03:57] LABS: Basophils # (auto) 0.1 10 ^3/uL (0-0.2); Basophils % (auto) 0.3 % (0.0-2.0); Eosinophils # (auto) 0.4 10 ^3/uL (0-0.8); Eosinophils % (auto) 1.9 % (0.0-7.0); Hemoglobin 11.3 g/dL (12.2-16.2); Lymphocytes # (auto) 1.3 10 ^3/uL (0.4-5.4); Lymphocytes % (auto) 6.9 % (10.0-50.0); Mean Corpuscular Hgb Conc. 33.1 g/dL (32.0-36.0); Mean Corpuscular Volume 90.5 fL (80.0-100.0); Monocytes # (auto) 1.7 10 ^3/uL (0-1.3); Monocytes % (auto) 9.1 % (0.0-12.0); Neutrophils # (auto) 15.6 10 ^3/uL (1.6-8.6); Neutrophils % (auto) 81.8 % (37.0-80.0); Nucleated Red Blood Cells % 0.1 %; Red Blood Cells 3.76 10^6/uL (4.0-5.20); White Blood Cell 19.1 10^3/uL (4.4-10.8)
[2023-09-21] MEDS ORDERED: ALBUTEROL MEDNEB 2.5 mg/3ml NEB ONE ×2 (06:08→22:00)
[2023-09-21] MEDS: FUROSEMIDE 20 MG/2 ML VIAL IV SCH ×2 (06:31→18:22)
[2023-09-21] MEDS: ACETYLCYSTEINE 10 %(100MG/ML) SOL 4ML NEB SCH (07:06)
[2023-09-21] MEDS: BUDESONIDE (INHALATION) 0.5 MG/2 ML NEB NEB SCH ×2 (07:06→22:17)
[2023-09-21] MEDS: IPRATROPIUM BROM 0.5 MG/2.5ML INH SOL NEB PRN ×2 (07:06→22:17)
[2023-09-21] MEDS: ALBUTEROL SULF 2.5 MG/0.5ML(0.5%) NEB SOLN NEB PRN (07:07)
[2023-09-21] MEDS: NOREPINEPHRINE 8 MG/250ML KIT 250 ML IV SCH (09:30)
[2023-09-21] MEDS: MIDAZOLAM DRIP 50 mg/50mL 50 ML IV SCH (09:30)
[2023-09-21 09:31] LABS: Base Excess 5.7 mmol/L (-2.0-2.0)
[2023-09-21] MEDS: APIXABAN 2.5 MG TAB NG SCH ×2 (09:46→21:48)
[2023-09-21] MEDS: AMIODARONE HCL 200 MG TAB PO SCH ×2 (09:46→21:48)
[2023-09-21] MEDS: FAMOTIDINE (10MG/ML) 2ML VL IV SCH (09:46)
[2023-09-21] MEDS: SODIUM CHLOR 0.9% PF (SALINE LOCK) 10ML VIAL/SYR IV SCH ×2 (09:47→21:49)
[2023-09-21] MEDS: Jevity 1.2 Cal/Fiber 1 Liter GT SCH (15:47)
[2023-09-22] VITALS (57 sets, daily range): BP systolic 75–160; BP diastolic 44–93; PULSE 96–121; RESP 18–27; TEMP 98.3–99.1; O2SAT 92–99
[2023-09-22 04:29] LABS: Basophils # (auto) 0 10 ^3/uL (0-0.2); Eosinophils # (auto) 0.3 10 ^3/uL (0-0.8); Hemoglobin 11.2 g/dL (12.2-16.2); Lymphocytes # (auto) 1.2 10 ^3/uL (0.4-5.4); Monocytes % (auto) 8.8 % (0.0-12.0)
[2023-09-22 04:31] LABS: Basophils % (auto) 0.1 % (0.0-2.0); Eosinophils % (auto) 1.2 % (0.0-7.0); Hematocrit 33.6 % (36.0-46.0); Lymphocytes % (auto) 5.4 % (10.0-50.0); Mean Corpuscular Hemoglobin 30.5 pg (28.0-32.0); Mean Corpuscular Hgb Conc. 33.5 g/dL (32.0-36.0); Mean Corpuscular Volume 91.2 fL (80.0-100.0); Neutrophils # (auto) 18.9 10 ^3/uL (1.6-8.6); Neutrophils % (auto) 84.5 % (37.0-80.0); Nucleated Red Blood Cells % 0.1 %; Red Blood Cells 3.68 10^6/uL (4.0-5.20); Red Cell Distribution Width 14.4 % (11.8-14.3); White Blood Cell 22.4 10^3/uL (4.4-10.8)
[2023-09-22] MEDS: FUROSEMIDE 20 MG/2 ML VIAL IV SCH ×2 (06:22→20:10)
[2023-09-22 07:38] LABS: Carbon Dioxide 33 mmol/L (20-30)
[2023-09-22 07:39] LABS: Calcium 9.9 mg/dL (8.5-10.1); Chloride 96 mmol/L (98-107); Potassium 4.4 mmol/L (3.5-5.1); Sodium 135 mmol/L (136-145)
[2023-09-22 07:43] LABS: Glucose 108 mg/dL (74-106)
[2023-09-22 07:44] LABS: BUN/Creatinine Ratio 44.1 (10.0-20.0); Blood Urea Nitrogen 49 mg/dL (9-23)
[2023-09-22 07:47] LABS: Anion Gap 6 (5-15)
[2023-09-22] MEDS: FAMOTIDINE (10MG/ML) 2ML VL IV SCH (09:23)
[2023-09-22] MEDS: SODIUM CHLOR 0.9% PF (SALINE LOCK) 10ML VIAL/SYR IV SCH ×2 (09:23→22:03)
[2023-09-22] MEDS: APIXABAN 2.5 MG TAB NG SCH ×2 (09:24→22:03)
[2023-09-22] MEDS: AMIODARONE HCL 200 MG TAB PO SCH ×2 (09:25→22:02)
[2023-09-22] MEDS: NOREPINEPHRINE 8 MG/250ML KIT 250 ML IV SCH (09:30)
[2023-09-22] MEDS: MIDAZOLAM DRIP 50 mg/50mL 50 ML IV SCH (09:30)
[2023-09-22] MEDS ORDERED: ALBUTEROL MEDNEB 2.5 mg/3ml NEB ONE ×2 (09:52→19:24)
[2023-09-22] MEDS: ALBUTEROL SULF 2.5 MG/0.5ML(0.5%) NEB SOLN NEB PRN ×2 (09:54→19:13)
[2023-09-22] MEDS: IPRATROPIUM BROM 0.5 MG/2.5ML INH SOL NEB PRN ×2 (09:54→19:13)
[2023-09-22] MEDS: BUDESONIDE (INHALATION) 0.5 MG/2 ML NEB NEB SCH ×2 (09:55→22:06)
[2023-09-22 10:27] LABS: Base Excess 6.8 mmol/L (-2.0-2.0)
[2023-09-22] MEDS: MORPHINE SULFATE INJ 2 MG/ml SYRG IV PRN (18:53)
[2023-09-22 20:47] LABS: Base Excess 6.1 mmol/L (-2.0-2.0)
[2023-09-23] VITALS (70 sets, daily range): BP systolic 73–230; BP diastolic 34–129; PULSE 71–130; RESP 13–23; TEMP 98.7–98.9; O2SAT 86–100
[2023-09-23 01:18] LABS: Base Excess 7.2 mmol/L (-2.0-2.0)
[2023-09-23] MEDS: MORPHINE SULFATE INJ 2 MG/ml SYRG IV PRN (01:22)
[2023-09-23] MEDS ORDERED: ALBUTEROL MEDNEB 2.5 mg/3ml NEB ONE ×3 (01:34→14:14)
[2023-09-23] MEDS: IPRATROPIUM BROM 0.5 MG/2.5ML INH SOL NEB PRN ×2 (01:35→14:15)
[2023-09-23] MEDS: ALBUTEROL SULF 2.5 MG/0.5ML(0.5%) NEB SOLN NEB PRN (01:46)
[2023-09-23] MEDS: MIDAZOLAM DRIP 50 mg/50mL 50 ML IV SCH ×2 (01:58→07:40)
[2023-09-23 04:24] LABS: Basophils # (auto) 0 10 ^3/uL (0-0.2); Basophils % (auto) 0.2 % (0.0-2.0); Hemoglobin 11.6 g/dL (12.2-16.2); Mean Corpuscular Hemoglobin 29.7 pg (28.0-32.0)
[2023-09-23 04:25] LABS: Eosinophils # (auto) 0.3 10 ^3/uL (0-0.8); Hematocrit 36.6 % (36.0-46.0); Lymphocytes # (auto) 1.2 10 ^3/uL (0.4-5.4); Lymphocytes % (auto) 4.9 % (10.0-50.0); Mean Corpuscular Hgb Conc. 31.8 g/dL (32.0-36.0); Mean Corpuscular Volume 93.5 fL (80.0-100.0); Monocytes # (auto) 1.9 10 ^3/uL (0-1.3); Monocytes % (auto) 7.6 % (0.0-12.0); Neutrophils # (auto) 21.4 10 ^3/uL (1.6-8.6); Neutrophils % (auto) 86.3 % (37.0-80.0); Nucleated Red Blood Cells % 0.1 %; Red Blood Cells 3.92 10^6/uL (4.0-5.20); Red Cell Distribution Width 15.1 % (11.8-14.3); White Blood Cell 24.8 10^3/uL (4.4-10.8)
[2023-09-23 04:30] LABS: Chloride 97 mmol/L (98-107); Potassium 4.2 mmol/L (3.5-5.1); Sodium 136 mmol/L (136-145)
[2023-09-23 04:31] LABS: Anion Gap 11 (5-15); Carbon Dioxide 28 mmol/L (20-30)
[2023-09-23 04:32] LABS: Calcium 10.2 mg/dL (8.5-10.1)
[2023-09-23 04:36] LABS: Glucose 137 mg/dL (74-106)
[2023-09-23 04:37] LABS: BUN/Creatinine Ratio 33.8 (10.0-20.0); Blood Urea Nitrogen 44 mg/dL (9-23)
[2023-09-23] MEDS: FUROSEMIDE 20 MG/2 ML VIAL IV SCH (05:37)
[2023-09-23 08:53] LABS: Base Excess 3.2 mmol/L (-2.0-2.0)
[2023-09-23] MEDS: NOREPINEPHRINE 8 MG/250ML KIT 250 ML IV SCH ×2 (09:30→12:41)
[2023-09-23] MEDS: AMIODARONE HCL 200 MG TAB PO SCH (09:51)
[2023-09-23] MEDS: FAMOTIDINE (10MG/ML) 2ML VL IV SCH (09:51)
[2023-09-23] MEDS: SODIUM CHLOR 0.9% PF (SALINE LOCK) 10ML VIAL/SYR IV SCH (09:52)
[2023-09-23] MEDS: APIXABAN 2.5 MG TAB NG SCH (09:52)
[2023-09-23] MEDS: BUDESONIDE (INHALATION) 0.5 MG/2 ML NEB NEB SCH (10:24)
[2023-09-23] MEDS: ALBUTEROL SULF 2.5 MG/0.5ML(0.5%) NEB SOLN NEB SCH ×2 (10:24→14:15)
[2023-09-23] MEDS ORDERED: PIPERACILLIN-TAZOB 3.375GM 100 ML IV ONE (12:15)
[2023-09-23] MEDS ORDERED: HYOSCYAMINE SULF 0.125 MG ODT TAB SL PRN (15:15)
[2023-09-23] MEDS ORDERED: MORPHINE SULFATE INJ 2 MG/ml SYRG IV PRN (15:15)
[2023-09-23] MEDS ORDERED: LORazepam 2MG/ML-1ML VIAL IV PRN (15:15)
[2023-09-23] MEDS ORDERED: LORazepam 2MG/ML-1ML VIAL ONE (15:17)
[2023-09-23] MEDS ORDERED: PIPERACILLIN-TAZOB 3.375GM 100 ML IV SCH (22:00)
== END 2023-09-23 21:30 | DRG 207 ==
LOC: ER 12:23 → EDBD 12:23 → TELE 16:31 → DOU IN ICU 09-11 15:00 → TELE-CENTR 09-12 20:20 → ICU CENTRL 09-12 20:31 → DOU IN ICU 09-13 02:38 → ICU WEST 09-14 17:37
PROVIDERS: ADMIT Hospitalist; ATTEND Hospitalist
PROC: 05HB33Z Insertion of Infusion Device into Right Basilic Vein, Percutaneous Approach (ICD-10-PCS; 2023-09-11)
PROC: B54MZZA Ultrasonography of Right Upper Extremity Veins, Guidance (ICD-10-PCS; 2023-09-11)
PROC: 5A0935A Assistance with Respiratory Ventilation, Less than 24 Consecutive Hours, High Flow/Velocity Cannula (ICD-10-PCS; 2023-09-12)
PROC: 0W993ZZ Drainage of Right Pleural Cavity, Percutaneous Approach (ICD-10-PCS; 2023-09-13)
PROC: 5A0935A Assistance with Respiratory Ventilation, Less than 24 Consecutive Hours, High Flow/Velocity Cannula (ICD-10-PCS; 2023-09-13)
PROC: 5A1955Z Respiratory Ventilation, Greater than 96 Consecutive Hours (ICD-10-PCS; principal; 2023-09-14)
PROC: 0BH17EZ Insertion of Endotracheal Airway into Trachea, Via Natural or Artificial Opening (ICD-10-PCS; 2023-09-14)
PROC: 02HV33Z Insertion of Infusion Device into Superior Vena Cava, Percutaneous Approach (ICD-10-PCS; 2023-09-14)
PROC: B548ZZA Ultrasonography of Superior Vena Cava, Guidance (ICD-10-PCS; 2023-09-14)
PROC: 5A09357 Assistance with Respiratory Ventilation, Less than 24 Consecutive Hours, Continuous Positive Airway Pressure (ICD-10-PCS; 2023-09-14)
PROC: 0BD38ZX Extraction of Right Main Bronchus, Via Natural or Artificial Opening Endoscopic, Diagnostic (ICD-10-PCS; 2023-09-16)
DX: J96.01 Acute respiratory failure with hypoxia (principal); J15.69 Pneumonia due to other Gram-negative bacteria; R65.11 Systemic inflammatory response syndrome (SIRS) of non-infectious origin with acute organ dysfunction; J15.9 Unspecified bacterial pneumonia; J91.8 Pleural effusion in other conditions classified elsewhere; E87.4 Mixed disorder of acid-base balance; I48.20 Chronic atrial fibrillation, unspecified; C34.91 Malignant neoplasm of unspecified part of right bronchus or lung; Z99.11 Dependence on respirator [ventilator] status; R78.81 Bacteremia; E66.9 Obesity, unspecified; D72.829 Elevated white blood cell count, unspecified; R00.0 Tachycardia, unspecified; B95.8 Unspecified staphylococcus as the cause of diseases classified elsewhere; N19 Unspecified kidney failure; Z66 Do not resuscitate; E78.5 Hyperlipidemia, unspecified; I10 Essential (primary) hypertension; Z68.34 Body mass index [BMI] 34.0-34.9, adult; Z82.0 Family history of epilepsy and other diseases of the nervous system; Z82.3 Family history of stroke; Z86.73 Personal history of transient ischemic attack (TIA), and cerebral infarction without residual deficits; Z90.710 Acquired absence of both cervix and uterus; Z51.5 Encounter for palliative care
CPT/HCPCS: 36415; 36569; 36600; 70450; 71045; 71275; 76604; 80048; 80053; 80202; 81001; 82565; 82805; 83036; 83605; 83735; 83880; 84439; 84443; 84484; 85007; 85025; 85027; 85610; 85730; 87040; 87070; 87077; 87081; 87086; 87088; 87186; 87205; 87426; 87804; 89051; 93005; 93306; 93971; 94002; 94003; 94640; 94660; 96365; 96366; 96375; 97163; A4565; G0378; J0171; J0330; J0696; J2250; J2543; J2704; J3490